=== PATIENT | female | born 1990 | race African-American/Black ===

== ENCOUNTER 2018-02-16 10:39 | Emergency (ER) | payer MEDICAID ==
[~2018-02-16] VITALS: Ht 162.6 cm; Wt 79.0 kg
[2018-02-16] MEDS ORDERED: IBUPROFEN 600MG TABLET PO ONE (11:45)
[2018-02-16 11:56] VITALS: BP 174/106
== END 2018-02-16 16:09 | disposition home or self-care (01) ==
LOC: ER 13:49
DX: M25.561 Pain in right knee (principal); F17.200 Nicotine dependence, unspecified, uncomplicated; F12.10 Cannabis abuse, uncomplicated; X50.1XXA Overexertion from prolonged static or awkward postures, initial encounter; Y93.67 Activity, basketball; Y92.89 Other specified places as the place of occurrence of the external cause
CPT/HCPCS: 73560; 81025; 99283

== ENCOUNTER 2018-09-10 12:24 | Emergency (ER) | payer MEDICAID ==
[~2018-09-10] VITALS: Ht 165.1 cm; Wt 79.0 kg
[2018-09-10] MEDS ORDERED: KETOROLAC 60MG/2ML VIAL IM ONE (13:15)
[2018-09-10 13:27] VITALS: BP 160/92
== END 2018-09-10 13:40 | disposition home or self-care (01) ==
LOC: ER 12:40
DX: K08.89 Other specified disorders of teeth and supporting structures (principal)
CPT/HCPCS: 81025; 96372; 99283; J1885

== ENCOUNTER 2019-04-25 03:46 | Emergency (ER) | payer MEDICAID ==
[~2019-04-25] VITALS: Ht 162.6 cm; Wt 77.0 kg
[2019-04-25] MEDS ORDERED: PREDNISONE 20MG TABLET PO STA (06:36)
[2019-04-25] MEDS ORDERED: IPRATROPIUM BROMIDE (0.02%) 0.5MG/2.5ML NEB HHN STA (06:36)
[2019-04-25] MEDS ORDERED: ALBUTEROL (0.083%) 2.5MG/3ML NEB HHN STA (06:36)
[2019-04-25 07:56] VITALS: BP 146/79
== END 2019-04-25 08:44 | disposition home or self-care (01) ==
LOC: ER 03:46
DX: J45.901 Unspecified asthma with (acute) exacerbation (principal); F17.210 Nicotine dependence, cigarettes, uncomplicated
CPT/HCPCS: 71045; 81025; 94640; 99283; 99406; J7512; Z7610

== ENCOUNTER 2019-05-05 08:54 | Emergency (ER) | payer MEDICAID ==
[~2019-05-05] VITALS: Ht 162.6 cm; Wt 77.0 kg
[2019-05-05] MEDS ORDERED: IBUPROFEN 600MG TABLET PO ONE (09:30)
[2019-05-05] MEDS ORDERED: LIDOCAINE 1%/EPI 1:100,000 10 ML VIAL IJ ONE (09:30)
[2019-05-05] MEDS ORDERED: TETANUS, DIPHTHERIA, PERTUSSIS VAC/PF 0.5ML (>7YR OLD) IM ONE (09:30)
[2019-05-05] MEDS ORDERED: BACITRACIN ZINC OINT UDPKT TOP ONE (09:30)
[2019-05-05] MEDS ORDERED: LIDOCAINE HCL 1%/EPI 1:200,000 30 ML VIAL IJ SCH (09:45)
[2019-05-05] MEDS ORDERED: LIDOCAINE HCL/EPINEPHRINE 1%-EPI 1:100,000 20 ML VIAL MC SCH (09:45)
[2019-05-05 12:19] VITALS: BP 135/89
== END 2019-05-05 12:20 | disposition home or self-care (01) ==
LOC: ER 09:20
DX: S81.812A Laceration without foreign body, left lower leg, initial encounter (principal); R03.0 Elevated blood-pressure reading, without diagnosis of hypertension; W26.8XXA Contact with other sharp object(s), not elsewhere classified, initial encounter; Y93.89 Activity, other specified; Y92.89 Other specified places as the place of occurrence of the external cause; Y99.0 Civilian activity done for income or pay; Z23 Encounter for immunization
CPT/HCPCS: 12002; 90471; 90715; 99283; J3490

== ENCOUNTER 2019-05-26 10:14 | Emergency (ER) | payer MEDICAID ==
[~2019-05-26] VITALS: Ht 162.6 cm; Wt 77.5 kg
[2019-05-26] MEDS ORDERED: albuterol (10:42)
[2019-05-26 10:43] VITALS: BP 153/86
[2019-05-26] MEDS ORDERED: BACITRACIN ZINC OINT UDPKT TOP ONE (11:15)
== END 2019-05-26 11:28 | disposition home or self-care (01) ==
LOC: ER 10:45
DX: Z48.02 Encounter for removal of sutures (principal); Z79.2 Long term (current) use of antibiotics
CPT/HCPCS: 99283

== ENCOUNTER 2020-02-10 17:49 | Emergency (ER) | payer MEDICAID ==
[~2020-02-10] VITALS: Ht 162.6 cm; Wt 77.0 kg
[~2020-02-10 17:49] MED LIST: albuterol
[2020-02-10 17:51] VITALS: BP 139/96
== END 2020-02-10 20:44 | disposition home or self-care (01) ==
LOC: ER 17:49
DX: R11.2 Nausea with vomiting, unspecified (principal); I49.9 Cardiac arrhythmia, unspecified; J45.909 Unspecified asthma, uncomplicated
CPT/HCPCS: 81025; 93005; 99283